=== PATIENT | male | born 1950 ===

== ENCOUNTER 2017-03-12 06:25 | Day surgery (SDC) | payer OTHER ==
[~2017-03-12] VITALS: Ht 193 cm; Wt 100.0 kg
[~2017-03-12 06:25] MED LIST: MULTIPLE VITAMIN PO; VITAMIN C500 M1 PO; VITAMIN D-31000 UNIT PO
--- NOTE | 2017-03-12 07:09 | NUR ---
PREOP INSTRUCTIONS GIVEN TO PATIENT. QUESTIONS ANSWERED. PATIENT VERBALIZES UNDERSTANDING. CONSENT CONFIRMED. NO PREOP MEDICATIONS GIVEN. SIDE MARKED BY PATIENT. RESTING COMFORTABLY. KB
[2017-03-12] MEDS ORDERED: NORCO1 TA1 PO (08:43)
--- NOTE | 2017-03-12 08:44 | Provider's Discharge Care Plan ---
Problem, Goal, Plan Problem List 1. S/P right inguinal hernia repair
--- NOTE | 2017-03-12 08:44 | Provider's Discharge Care Plan ---
Problem, Goal, Plan Problem List 1. S/P right inguinal hernia repair
--- NOTE | 2017-03-12 08:58 | NUR ---
PT ARRIVED TO PACU ASLEEP WITH LMA IN PLACE. LMA WAS REMOVED BY ANESTESIA PROVIDER IN PACU AT 0855. VSS.
--- NOTE | 2017-03-12 09:15 | OPERATIVE REPORT ---
DATE OF SURGERY: 03/12/2017 SURGEON: Brody Portillo MD PREOPERATIVE DIAGNOSIS: 1. Right inguinal hernia POSTOPERATIVE DIAGNOSIS: 1. Right inguinal hernia PROCEDURE PERFORMED: 1. Right inguinal herniorrhaphy. ANESTHESIA: General. INDICATIONS: The patient is a 66-year-old man with a right groin bulge. He had a previous left inguinal hernia. SURGICAL TECHNIQUE: The patient was taken to the operating room, where a general anesthetic was administered and the patient prepped and draped in the usual sterile fashion. IV antibiotics were given and local block of 0.5% Marcaine with epinephrine and 1% Xylocaine was infiltrated. A transverse incision was made and the underlying external oblique was divided along its fibers, exposing the cord structures and the ilioinguinal nerve. There were 2 actual nerves and these were preserved and from the cord structures. The cord itself was skeletonized with cremasteric fibers and there was a well-developed hernia sac protruding nursing home down the cord as well as a direct component in the posterior inguinal floor. These were all away from the cord structures and inverted. The inverted transversalis fascia was imbricated using 2 rows of running 2-0 polypropylene suture, flattening out the groin floor. A piece of woven polypropylene mesh was tailored to suit the inguinal floor and split laterally. It was sewed along its lower edge with running 3-0 Prolene and along the medial upper edge with the same suture. The tails were tucked under the external oblique and a single suture placed laterally. After irrigating the wound, the wound was closed using running 3-0 Vicryl for the external oblique and running subcuticular 4-0 Vicryl and Steri-Strips for skin. The patient left in good condition and no intraoperative complications were encountered.
--- NOTE | 2017-03-12 09:36 | NUR ---
PATIENT RETURNED TO THE FLOOR AWAKE AND TALKING.VSS. DENIES PAIN OR NAUSEA. WATER OFFERED. KB
--- NOTE | 2017-03-12 10:10 | NUR ---
TOLERATING LIQUIDS,REFUSING SOLIDS AT THIS TIME. UP AMBULATING IN THE [facility] WITH HIS . INDEPENDENT IN THE ROOM. CONTINUES TO DENY PAIN. DISCHARGE INSTRUCTIONS GIVEN TO PATIENT AND HIS . QUESTIONS ANSWERED. PATIENT VERBALIZES UNDERSTANDING. WILL DISCHARGE HOME WITH HIS . KB
== END 2017-03-12 10:40 | disposition home or self-care (01) ==
LOC: OR SRH 06:25 → SCU SRH 06:28 → OR SRH 08:30
PROVIDERS: Surgery
PROC: 0YU50JZ Supplement Right Inguinal Region with Synthetic Substitute, Open Approach (ICD-10-PCS; principal; 2017-03-12 08:30)
DX: K40.90 Unilateral inguinal hernia, without obstruction or gangrene, not specified as recurrent (principal)
CPT/HCPCS: 29229; 29240; 50004; 60001; 70002; 80212; 80575; 80866; 82572; 84038; 84519; 87058